=== PATIENT | female | born 1930 | race Caucasian/White ===

== ENCOUNTER 2017-05-20 14:20 | Inpatient (IN) | payer MEDICARE, OTHER ==
--- NOTE | ~2017-05-20 | HP ---
History And Physical [place] [id number] [facility] [place]. [address] NAME: PRUDENCIO BURCIAGA : [birth year] STATUS : ADM IN [facility]#: [id number] AGE: 86 ADM/REG DATE : 05/20/17 MR#: [id number] REPORT SERV DATE: 05/20/17 DICTATED BY: HAYDE WILSON DATE: 05/20/17 REPORT STATUS : Draft TRANSCRIBED BY: MODL DATE: 05/20/17 DATE OF ADMISSION: 05/20/2017 CHIEF COMPLAINT: An 86-year-old female presenting with right-sided rib fractures and a pneumothorax leading to hypoxia. HISTORY OF PRESENTING ILLNESS: The patient's history was obtained through careful interview with the patient and a telephone conversation with her son, Anmol Burciaga, power of insurance attorney, coupled with review of [facility] medical records. The patient was living independently at home about two weeks ago when she had a fall in the driveway. Because of recent tragedy and difficulties in the family, it was felt that the patient would be best served transitioning to an assisted living facility and about one week ago, was admitted to [facility]. Two days after being in the assisted living facility (approximately five days ago), the patient tripped and fell again in her room and since that time, she has had right shoulder pain and right chest discomfort, she describes as an achy "hard" quality pain up to a 9/10 severity at times, exacerbated by deep breathing. She does describe shortness of breath characterized by dyspnea on exertion associated with all this. Over the last few days, she has had an increasing cough that generally is nonproductive or only slightly productive occasionally of a whitish sputum. No fevers, chills, nausea, or vomiting. No loss of consciousness. No lightheadedness. No further falls. Then, on the day of admission, she seemed more short of breath and an oxygen saturation was checked, and when it was reading 85% on room air, it was felt that she had to come to the hospital for further evaluation. Upon initial evaluation here, the patient was found to have a large right pneumothorax about 50% of her lung volume and then had a PneumoDart chest tube placed in the emergency department with significant resolution of her pneumothorax. It was also noted that the patient had right-sided fifth and sixth rib fractures. REVIEW OF SYSTEMS: Otherwise, a 14-point review of systems was obtained and was negative. PAST MEDICAL HISTORY: 1. Dementia. 2. Hypertension. 3. Gastroesophageal reflux disorder. 4. Coronary artery disease, status post CABG, 2005. 5. Depression. 6. Hypothyroidism. History And Physical [address] [address] NAME: PRUDENCIO BURCIAGA : [birth year] STATUS : ADM IN [facility]#: [id number] AGE: 86 ADM/REG DATE : 05/20/17 MR#: [id number] REPORT SERV DATE: 05/20/17 DICTATED BY: HAYDE WILSON DATE: 05/20/17 REPORT STATUS : Draft TRANSCRIBED BY: HUMBERTO DATE: 05/20/17 7. Bilateral basal ganglia lacunar strokes seen on MRI of the brain in 2006 with history of transient ischemic attack. 8. Elevated cholesterol. 9. Heparin-induced massive bleed with hemorrhagic shock and a code blue in 2004. 10.Left bundle-branch block. 11.Systolic congestive heart failure. Ejection fraction 45%. 12.Pyelonephritis. PAST SURGICAL HISTORY: 1. CABG, 2005. 2. Left knee surgery. 3. Cholecystectomy. ALLERGIES: HEPARIN AND SULFA. CODE STATUS: DNR. SOCIAL HISTORY: No tobacco abuse. No alcohol abuse. Has been living at [facility] for one week. Became a 15 years ago. Her son, Anmol, is the power of insurance attorney. FAMILY HISTORY: Had one of her daughters just pass away on 04/30/2017 from "double pneumonia." Also, strong family history of diabetes, but no family history known of heart disease or stroke. CURRENT MEDICATIONS: Include aspirin 81 mg p.o. daily, Aricept 20 mg p.o. daily, Flonase, Synthroid 75 mcg p.o. daily, lisinopril 10 mg p.o. daily, Mobic 7.5 mg p.o. daily, Singulair 10 mg p.o. daily, Prilosec 20 mg p.o. daily, and Effexor XR 37.5 mg at bedtime. PHYSICAL EXAMINATION: VITAL SIGNS: Temperature 98.3, pulse 95, blood pressure 132/54, respiratory rate 26, O2 saturation 85% on room air initially. The patient was saturating 100% on 2 L nasal cannula after chest tube placement. GENERAL: Chronically ill-appearing female, in mild distress secondary to shortness of breath. HEENT: Pupils equal, round, and reactive to light. No conjunctival pallor. No scleral icterus. Nares are patent. Oropharynx is clear of obstruction. Dry mucous membranes. NECK: Trachea midline. No thyromegaly. LYMPH: No cervical lymphadenopathy. No supraclavicular lymphadenopathy. RESPIRATORY: Clear to auscultation now with mild scattered rhonchi on the right side greater than the left. No wheezes, no rales. The patient has a labored respiratory effort. CARDIOVASCULAR: Regular rate and rhythm. No murmurs, rubs, or gallops. No current extremity edema is appreciated. ABDOMEN: Soft, nontender, nondistended. Normal bowel sounds auscultated throughout. No hepatosplenomegaly. DERMATOLOGICAL: Warm and dry. EXTREMITIES: No pallor, no cyanosis. History And Physical [address] [address] NAME: PRUDENCIO BURCIAGA : [birth year] STATUS : ADM IN [facility]#: [id number] AGE: 86 ADM/REG DATE : 05/20/17 MR#: [id number] REPORT SERV DATE: 05/20/17 DICTATED BY: HAYDE WILSON DATE: 05/20/17 REPORT STATUS : Draft TRANSCRIBED BY: HUMBERTO DATE: 05/20/17 PSYCHIATRIC: Normal affect. Good mood. Alert and oriented x3. LABORATORY DATA: White blood cell count 7.7, hemoglobin 11, hematocrit 36, platelets 216. Sodium 140, potassium 5.2, chloride 102, bicarb 35, BUN 31, creatinine 1.23, glucose 117, brain natriuretic peptide 729, procalcitonin 0.17. INR 1.0. MCV 103.4. STUDIES: Chest x-ray by my own evaluation shows initially large right-sided pneumothorax, about 50% lung volume loss with fifth and sixth rib fractures on the right side. ASSESSMENT AND PLAN: 1. Hypoxic respiratory failure, improved with treatment of pneumothorax with chest tube. 2. Traumatic pneumothorax, right sided. A PneumoDart chest tube was placed in the emergency department. We will obtain a Pulmonary consult, and I discussed the case with Dr. Daryn Dumont on the phone. 3. Dementia. 4. Acute kidney injury. Place on IV fluids. Monitor. KPL/MODL Hayde Wilson M.D. / [id number] CC: Emanuel Carson M.D.
--- NOTE | ~2017-05-20 | CN ---
Consultation Report [facility] [address] [place]. [address] NAME: PRUDENCIO BURCIAGA : [birth year] STATUS : ADM IN PAT#: [id number] AGE: 86 ADM/REG DATE : 05/20/17 MR#: [id number] REPORT SERV DATE: 05/21/17 DICTATED BY: BRENNAN MOSS DATE: 05/21/17 REPORT STATUS : Draft TRANSCRIBED BY: MODL DATE: 05/21/17 CONSULTATION DATE OF CONSULTATION: 05/21/2017 CHIEF COMPLAINT: Shortness of breath and cough in a patient with a right-sided pneumothorax. HISTORY OF PRESENT ILLNESS: Mrs. Prudencio Burciaga is a pleasant 86-year-old white female with a past medical history significant for dementia, recent falls, and coronary artery disease, who presents to [facility]'s Emergency Room after sustaining a fall involving her right thorax. It should be noted that Mrs. Burciaga has not been hospitalized recently and has done fairly well as an outpatient given her advanced age and comorbidities. Mrs. Burciaga is not currently established with a workers' compensation commissioner. She does not usually require any supplemental oxygen. She is on no nebulized medications. She describes herself as a never smoker. She denies symptomatology related to obstructive sleep apnea. She describes her exercise tolerance prior to this recent illness as being excellent. It should be noted that Mrs. Burciaga does have some degree of dementia and the following information was garnered both from the patient as well as extensive chart review. Apparently, Mrs. Burciaga has had a fall as recently as two to three weeks ago. By her report, there were no ill effects other than being somewhat sore afterwards. More recently, she sustained a fall at the assisted living facility where she resides. On her descent to the floor, she did strike her right chest. Soon afterwards, she began to experience some shortness of breath. During this time, she did note some increased frequency of cough and sputum production. As such, she was brought to [facility]'s Emergency Room. Upon arrival, she was found to be afebrile and normotensive. Her oxygenation was 85% on room air. Initial blood work revealed a white blood cell count of 7700. Her creatinine was 1.23. Her BNP was elevated at 729.2. She did eventually undergo a chest x-ray, which revealed a right sided pneumothorax. She did have an placed with some improvement in her pneumothorax. The chest tube was placed on water-seal with followup chest x-ray this morning, which showed some reaccumulation of the pneumothorax. For the aforementioned reasons, she has been referred to the Pulmonary Service for further assessment. Currently, Mrs. Burciaga's main pulmonary complaint is chest wall discomfort secondary to her chest tube placement. This is worse on inspiration. She is coughing some. This is producing some [id number] sputum. She denies any wheezing in her chest. She denies previous pneumonias. She denies formal diagnosis of asthma, bronchitis, or emphysema. The patient does have known coronary artery disease and has undergone coronary artery bypass graft surgery. She does have a history of hypertension. By report, she has some degree of congestive heart failure as well. She currently denies any orthopnea, paroxysmal nocturnal dyspnea, or lower extremity edema. Consultation Report [address] [address] NAME: PRUDENCIO BURCIAGA : [birth year] STATUS : ADM IN PAT#: [id number] AGE: 86 ADM/REG DATE : 05/20/17 MR#: [id number] REPORT SERV DATE: 05/21/17 DICTATED BY: BRENNAN MOSS DATE: 05/21/17 REPORT STATUS : Draft TRANSCRIBED BY: HUMBERTO DATE: 05/21/17 In regard to constitutional symptoms, she currently denies fever, chills, nausea, vomiting, abdominal pain, or edema. PAST MEDICAL HISTORY: 1. Dementia. 2. Hypertension. 3. Gastroesophageal reflux disease. 4. Coronary artery disease. 5. Hypothyroidism. 6. Depression. 7. TIA. 8. Congestive heart failure. PAST SURGICAL HISTORY: 1. CABG. 2. Left knee surgery. 3. Cholecystectomy. FAMILY HISTORY: The patient denies family history of lung disease. SOCIAL HISTORY: The patient is . She does have a son who is active in her healthcare. She resides at an assisted living facility. She previously worked as a drive in waiter/waitress. She denies any known exposures to dust, silica, or asbestos. TOBACCO/ALCOHOL: As previously mentioned, the patient describes herself as a never smoker. MEDICATIONS: Aspirin 81 mg, Aricept 10 mg, levothyroxine 75 mcg, lisinopril 10 mg, meloxicam 7.5 mg, montelukast 10 mg, omeprazole 20 mg, and venlafaxine 37.5 mg. ALLERGIES: THE PATIENT HAS KNOWN ALLERGY TO HEPARIN. REVIEW OF SYSTEMS: A complete review of systems was performed with pertinent positives and negatives contained within the body of the HPI. PHYSICAL EXAMINATION: VITAL SIGNS: Blood pressure is 147/70, heart rate is 78, T-max is 97.8, respiratory rate is 22, and SpO2 is 99% on room air. GENERAL: Mrs. Prudencio Fountain is a pleasantly demented 86-year-old white female, who is not currently exhibiting any signs of acute distress. SKIN: With appropriate texture and turgor. There is an abrasion on the posterior right thorax located just below the scapula. HEENT: Head, skull is normocephalic, atraumatic. Eyes, sclerae anicteric. Ears: Auricles and tragus without pain to palpation. Hearing is grossly intact. Nose, bilateral nasal Consultation Report [address] [address] NAME: PRUDENCIO BURCIAGA : [birth year] STATUS : ADM IN [facility]#: [id number] AGE: 86 ADM/REG DATE : 05/20/17 MR#: [id number] REPORT SERV DATE: 05/21/17 DICTATED BY: BRENNAN MOSS DATE: 05/21/17 REPORT STATUS : Draft TRANSCRIBED BY: HUMBERTO DATE: 05/21/17 patency. Throat, dentition noted. NECK: Trachea is midline. No cervical lymphadenopathy appreciated. THORAX/LUNGS: Chest tube site noted. Few scattered rhonchi. Diminished breath sounds in the right lower lung field. CARDIOVASCULAR: Regular rate and rhythm. ABDOMEN: Soft. Nondistended, nontender. PERIPHERAL VASCULAR: No edema. MUSCULOSKELETAL: Full AROM and PROM in all joints. NEUROLOGIC: Cranial nerves 2 through 12 grossly intact. PSYCHIATRIC: The patient demonstrates good judgment at this time. ACCESSORY DATA: Reveals a white blood cell count of 6100, hemoglobin and hematocrit are 10.3 and 32.3. Procalcitonin is 0.12. Magnesium is 1.8. BNP is 528.9. TSH is 0.979. Chest x-ray this morning reveals a 5 cm to 6 cm separation of pleura at the apex. There are fractures of the right 6th and 7th ribs. IMPRESSION: 1. Pneumothorax, right-sided, secondary to recent fall. 2. Right-sided rib fractures of 6 and 7. 3. Bronchitis. 4. Dementia. 5. Congestive heart failure. PLAN: 1. Given increasing pneumothorax overnight, we have returned her to suction at 20 cm of water pressure. We will surveil her closely today. As there are no signs of an active air leak, we will likely place her on water seal tonight with a followup chest x-ray in the morning and work towards removing her right-sided chest tube. 2. In regard to the patient's bronchitis, she has had negative procalcitonin x2 . We will place her on nebulized breathing treatments with EzPAP therapy. We will also encourage incentive spirometer. 3. In regard to the patient's congestive heart failure, we will stop IV fluids at this time. The aforementioned impression and plan has been discussed with Dr. Dumont, who will follow further recommendations. We thank you for this consult and look forward to participating in the care of Mrs. Prudencio Burciaga. GBS/MODL Brennan Montemayor Consultation Report [address] [address] NAME: PRUDENCIO BURCIAGA : [birth year] STATUS : ADM IN [facility]#: [id number] AGE: 86 ADM/REG DATE : 05/20/17 MR#: [id number] REPORT SERV DATE: 05/21/17 DICTATED BY: BRENNAN MOSS DATE: 05/21/17 REPORT STATUS : Draft TRANSCRIBED BY: MODL DATE: 05/21/17 OPAL Moss / [id number] CC: Emanuel Mckeon M.D.
--- NOTE | ~2017-05-20 | DS ---
Discharge Summary [facility] [address] [place]. [address] NAME: PRUDENCIO CRUZ : [birth year] STATUS : DIS IN PAT#: [id number] AGE: 86 ADM/REG DATE : 05/20/17 MR#: [id number] REPORT SERV DATE: 05/27/17 DICTATED BY: RICK RENDON DATE: 05/26/17 REPORT STATUS : Draft TRANSCRIBED BY: MODL DATE: 05/26/17 ADMISSION DATE: 05/20/2017 DISCHARGE DATE: 05/26/2017 DISCHARGE DIAGNOSES: 1. Acute hypoxic respiratory failure, present on admission. 2. Traumatic right-sided pneumothorax, currently resolved. 3. Multiple rib fractures on the right. 4. Dementia. 5. Acute kidney injury, now resolved. 6. Hypertension. 7. Hypothyroidism. 8. Gastroesophageal reflux disorder. 9. Depression. 10.Coronary artery disease, status post coronary artery bypass graft in 2005. 11.Bilateral basal ganglia lacunar strokes on MRI in 2006 with a history of transient ischemic attack. 12.Hyperlipidemia. 13.Left bundle branch block, chronic. 14.Systolic congestive heart failure, compensated, with an ejection fraction of 45%. CONSULTANTS DURING THIS HOSPITALIZATION: Dr. Daryn Dumont of Pulmonology. INVASIVE PROCEDURES DONE DURING THIS HOSPITALIZATION: Placement of a PneumoDart and chest tube. BRIEF HISTORY OF PRESENT ILLNESS: The patient is an 86-year-old female with multiple medical issues, presented with a fall two to three weeks ago with multiple rib fractures and came to the emergency room, found to have a pneumothorax, so she was admitted. For detailed history and physical exam, please see note dictated by Dr. Olvin Kurtz on 05/20/2017. HOSPITAL COURSE: After being admitted to the hospital, this patient had a PneumoDart placed and placed to chest tube. Pulmonology saw the patient in consultation and recommended continued serial chest x-rays were done and the patient's pneumothorax continued to resolve. She did have acute kidney injury and for which she received hydration and that seems to have resolved as well. Her heart failure was not an issue during this hospitalization and remained compensated. Today, her pneumothorax has completely resolved. She is 98% on 1 L of O2 and will continue to wean that. She has acquired generalized debility due to her prolonged hospitalization and Physical Therapy has recommended inpatient rehab. She did have demand ischemia during this hospitalization with increased troponin which seemed to have resolved as well. Her last BNP on 05/21/2017 was 528. Pulmonology has signed off her care and recommended that she could be discharged. She remained stable and is being discharged in stable condition to rehab. DISCHARGE DISPOSITION: To rehab. Discharge Summary [place] [id number] [address] NAME: PRUDENCIO CRUZ : [birth year] STATUS : DIS IN PAT#: [id number] AGE: 86 ADM/REG DATE : 05/20/17 MR#: [id number] REPORT SERV DATE: 05/27/17 DICTATED BY: RICK RENDON DATE: 05/26/17 REPORT STATUS : Draft TRANSCRIBED BY: HUMBERTO DATE: 05/26/17 DISCHARGE ACTIVITY: Per facility. DISCHARGE DIET: Low-sodium diet. DISCHARGE MEDICATIONS: Aspirin 81 mg once daily, Aricept 20 mg once at bedtime, Flonase two sprays each nostril once daily, levothyroxine 75 mcg once at breakfast, Prinivil 10 mg once every morning, Mobic 7.5 mg once every morning, Singulair 10 mg once daily, Prilosec 20 mg once every morning, Effexor XR 37.5 mg once at bedtime, hydrocodone 5/325 one tab q.6 hours p.r.n. for pain. DISCHARGE FOLLOWUP: With Dr. Curtis Bey post rehab. More than 30 minutes spent planning this patient's discharge, reconciling medications, writing prescriptions, discussing hospital care with the family at the bedside and arranging rehab, signing all forms for rehab, and documenting this discharge. DICTATED BY: Emanuel Mitchell/HUMBERTO Rick Rendon M.D. / [id number] CC: Emanuel Mitchell M.D.
[~2017-05-20 14:20] MED LIST: ASABAYER PO; BILBERRY100 MG PO; CELEXA20 PO; FOSAMAX70 MG PO; GARLIC PO; LOP50 PO; LORTAB 5 PO; LUTEIN1 CAP OR; MEVACOR40 MG PO; PRILO PO; SUPER B COMP OR; SYN075 PO; ZETIA PO
[2017-05-20 14:55] LABS: BASOPHILS 0.1 %; BASOPHILS ABSOLUTE 0.01 10/3/uL (0.0-0.16); EOSINOPHILS 0.4 %; EOSINOPHILS ABSOLUTE 0.03 10/3/uL (0.0-0.53); HEMATOCRIT 36.1 % (36.0-48.0); HEMOGLOBIN 11.1 g/dL (12.0-16.0); IMMATURE GRANULOCYTES 0.1 %; IMMATURE GRANULOCYTES ABSOLUTE 0.01 10/3/uL (0.0-0.11); LYMPHOCYTES 11.2 %; LYMPHOCYTES ABSOLUTE 0.86 10/3/uL (0.67-4.30); MANUAL DIFF NO %; MEAN CORPUS HGB CONC 30.7 g/dL (32.0-36.0); MEAN CORPUSCULAR HEMOGLOB 31.8 pg (26.0-34.0); MEAN CORPUSCULAR VOLUME 103.4 fL (80-100); MEAN PLATELET VOLUME 10.9 fL (9.2-13.0); MONOCYTES 6.6 %; MONOCYTES ABSOLUTE 0.51 10/3/uL (0.21-1.20); NEUTROPHILS 81.6 %; NEUTROPHILS ABSOLUTE 6.25 10/3/uL (2.02-8.40); PLATELET COUNT 216 10/3/uL (150-400); RBC DISTRIBUTION WIDTH 14.1 % (12.0-16.0); RED CELL COUNT 3.49 10/6/uL (4.0-5.6); WHITE BLOOD CELLS 7.7 10/3/uL (4.5-10.5)
[2017-05-20 15:01] LABS: PARTIAL THROMBO TIME 26.8 SEC (22.5-37.2)
[2017-05-20 15:02] LABS: PROTIME (NOT ORD) 13.5 SEC (12.0-14.5)
[2017-05-20 15:09] LABS: A/G RATIO 0.9 (0.7-1.9); ALBUMIN 3.3 G/DL (3.5-5.0); ALKALINE PHOSPHATASE 71 U/L (45-117); BUN (BLOOD UREA NITROGEN) 31 MG/DL (6-23); CALCIUM, SERUM 8.9 MG/DL (8.5-10.4); CHLORIDE, SERUM 102 MMOL/L (96-112); CO2 (CARBON DIOXIDE) 35 MMOL/L (24-34); CREATININE 1.23 MG/DL (0.55-1.02); GFR AFRICAN AMERICAN 45 ML/MIN (>=60); GFR NON AFRICAN AMERICAN 39 ML/MIN (>=60); GLOBULIN 3.6 G/DL (2.5-4.1); GLUCOSE, SERUM 117 MG/DL (60-99); POTASSIUM, SERUM 5.2 MMOL/L (3.5-5.3); SGOT(AST) 29 U/L (5-40); SGPT(ALT) 28 U/L (5-65); SODIUM, SERUM 140 MMOL/L (135-148); TOTAL BILIRUBIN 0.4 MG/DL (0-1.2); TOTAL PROTEIN 6.9 G/DL (6.0-8.5)
[2017-05-20 15:58] LABS: PROCALCITONIN 0.17 ng/mL (<0.5)
[2017-05-20] MEDS ORDERED: SYN075 PO (18:45)
[2017-05-20] MEDS ORDERED: ARICEPT10 PO (18:48)
[2017-05-20] MEDS ORDERED: PRIN10 PO (18:49)
[2017-05-20] MEDS ORDERED: MOBIC7.5 PO (18:49)
[2017-05-20] MEDS ORDERED: PRILO PO (18:49)
[2017-05-20] MEDS ORDERED: ASAB PO (18:49)
[2017-05-20] MEDS ORDERED: SINGULAIR1 PO (18:50)
[2017-05-20] MEDS ORDERED: EFFEXXR37 PO (18:50)
[2017-05-20] MEDS ORDERED: FLONASE NAS (18:51)
[2017-05-20 20:14] LABS: LACTATE 0.8 MMOL/L (0.3-2.4)
[2017-05-21 05:50] LABS: BASOPHILS 0.3 %; BASOPHILS ABSOLUTE 0.02 10/3/uL (0.0-0.16); EOSINOPHILS 2.3 %; EOSINOPHILS ABSOLUTE 0.14 10/3/uL (0.0-0.53); HEMOGLOBIN 10.3 g/dL (12.0-16.0); IMMATURE GRANULOCYTES 0.2 %; IMMATURE GRANULOCYTES ABSOLUTE 0.01 10/3/uL (0.0-0.11); LYMPHOCYTES 15.2 %; LYMPHOCYTES ABSOLUTE 0.93 10/3/uL (0.67-4.30); MEAN CORPUS HGB CONC 31.9 g/dL (32.0-36.0); MEAN CORPUSCULAR HEMOGLOB 32.6 pg (26.0-34.0); MEAN CORPUSCULAR VOLUME 102.2 fL (80-100); MEAN PLATELET VOLUME 10.3 fL (9.2-13.0); MONOCYTES 8.5 %; MONOCYTES ABSOLUTE 0.52 10/3/uL (0.21-1.20); NEUTROPHILS 73.5 %; PLATELET COUNT 172 10/3/uL (150-400); RBC DISTRIBUTION WIDTH 13.4 % (12.0-16.0); RED CELL COUNT 3.16 10/6/uL (4.0-5.6); WHITE BLOOD CELLS 6.1 10/3/uL (4.5-10.5)
[2017-05-21 05:51] LABS: HEMATOCRIT 32.3 % (36.0-48.0); MANUAL DIFF NO %
[2017-05-21 05:56] LABS: INTERNATIONAL NORMAL RATI 1.1 UNITS (-); PARTIAL THROMBO TIME 27.9 SEC (22.5-37.2); PROTIME (NOT ORD) 14.4 SEC (12.0-14.5)
[2017-05-21 06:19] LABS: CHLORIDE, SERUM 108 MMOL/L (96-112); CO2 (CARBON DIOXIDE) 31 MMOL/L (24-34); SGOT(AST) 21 U/L (5-40); SGPT(ALT) 17 U/L (5-65); SODIUM, SERUM 143 MMOL/L (135-148); TOTAL BILIRUBIN 0.5 MG/DL (0-1.2)
[2017-05-21 06:20] LABS: A/G RATIO 0.9 (0.7-1.9); ALBUMIN 2.5 G/DL (3.5-5.0); ALKALINE PHOSPHATASE 49 U/L (45-117); BUN (BLOOD UREA NITROGEN) 24 MG/DL (6-23); CALCIUM, SERUM 7.4 MG/DL (8.5-10.4); CREATININE 0.65 MG/DL (0.55-1.02); GFR AFRICAN AMERICAN 92 ML/MIN (>=60); GFR NON AFRICAN AMERICAN 79 ML/MIN (>=60); GLOBULIN 2.7 G/DL (2.5-4.1); GLUCOSE, SERUM 73 MG/DL (60-99); POTASSIUM, SERUM 3.9 MMOL/L (3.5-5.3); TOTAL PROTEIN 5.2 G/DL (6.0-8.5); TROPONIN I 0.62 NG/ML (<0.05); ULTRASENSITIVE TSH 0.979 MCIU/ML (0.358-3.740)
[2017-05-21 07:26] LABS: PROCALCITONIN 0.12 ng/mL (<0.5)
[2017-05-22 07:26] LABS: CHLORIDE, SERUM 100 MMOL/L (96-112); CO2 (CARBON DIOXIDE) 34 MMOL/L (24-34); CREATININE 0.63 MG/DL (0.55-1.02); GFR AFRICAN AMERICAN 93 ML/MIN (>=60); GFR NON AFRICAN AMERICAN 80 ML/MIN (>=60); GLUCOSE, SERUM 76 MG/DL (60-99); PHOSPHORUS, SERUM 2.8 MG/DL (2.5-4.5); SODIUM, SERUM 137 MMOL/L (135-148)
[2017-05-22 07:28] LABS: BUN (BLOOD UREA NITROGEN) 20 MG/DL (6-23); CALCIUM, SERUM 8.8 MG/DL (8.5-10.4); FOLATE 19.5 NG/ML (>5.2); POTASSIUM, SERUM 4.7 MMOL/L (3.5-5.3)
[2017-07-05] MEDS ORDERED: ASAB PO (13:18)
[2017-07-05] MEDS ORDERED: LEVOTHYROXIN75 MCG PO (13:18)
[2017-07-05] MEDS ORDERED: PRILO PO (13:18)
[2017-07-05] MEDS ORDERED: PRIN10 PO (13:18)
[2017-07-05] MEDS ORDERED: MOBIC7.5 PO (13:19)
[2017-07-05] MEDS ORDERED: SINGULAIR1 PO (13:19)
[2017-07-05] MEDS ORDERED: EFFEXXR37 PO (13:19)
[2017-07-05] MEDS ORDERED: FLONASE NAS (13:20)
[2017-07-05] MEDS ORDERED: ARICEPT10 PO (13:20)
[2017-07-07] MEDS ORDERED: BUM1 PO (17:21)
[2017-07-07] MEDS ORDERED: COREG3 PO (17:21)
== END 2017-05-26 16:52 | DRG 199 ==
LOC: ER 14:20 → 7NO 18:54
PROVIDERS: Hospitalist; Physician Assistant; Physician Assistant Medical
PROC: 0W9930Z Drainage of Right Pleural Cavity with Drainage Device, Percutaneous Approach (ICD-10-PCS; principal; 2017-05-20)
DX: S27.0XXA Traumatic pneumothorax, initial encounter (principal); J96.01 Acute respiratory failure with hypoxia; N17.9 Acute kidney failure, unspecified; S22.41XA Multiple fractures of ribs, right side, initial encounter for closed fracture; I50.20 Unspecified systolic (congestive) heart failure; I24.8 Other forms of acute ischemic heart disease; I11.0 Hypertensive heart disease with heart failure; W18.30XA Fall on same level, unspecified, initial encounter; Z91.81 History of falling; Y92.89 Other specified places as the place of occurrence of the external cause; I25.10 Atherosclerotic heart disease of native coronary artery without angina pectoris; Z95.1 Presence of aortocoronary bypass graft; F32.9 Major depressive disorder, single episode, unspecified; E03.9 Hypothyroidism, unspecified; Z66 Do not resuscitate; Z88.2 Allergy status to sulfonamides; Z83.3 Family history of diabetes mellitus; K21.9 Gastro-esophageal reflux disease without esophagitis; Z86.73 Personal history of transient ischemic attack (TIA), and cerebral infarction without residual deficits
CPT/HCPCS: 32557; 71010; 71020; 80048; 80053; 81001; 82607; 82746; 83605; 83735; 83880; 84100; 84145; 84443; 84484; 85025; 85610; 85730; 87040; 94640; 97161-GP; 99285; A9270-GY; C1769; G8978-CK-GP; G8979-CJ-GP